=== PATIENT | female | born 1965 | race Caucasian/White ===

== ENCOUNTER 2017-01-21 05:02 | Emergency (ER) | payer MEDICAID ==
[~2017-01-21] VITALS: Ht 167.6 cm; Wt 108.9 kg
[2017-01-21 05:34] LABS: Urine RBC None Seen /hpf (0 - 4)
[2017-01-21 05:46] LABS: Urine Bilirubin Negative (Negative); Urine Blood Negative /uL (Negative); Urine Ca Oxalate Crystal FEW (None Seen); Urine Color Yellow (Yellow); Urine Glucose Normal (Normal); Urine Ketone Negative (Negative); Urine Mucus FEW (None Seen); Urine Nitrite Negative (Negative); Urine Squamous Epithelial Cell MOD /hpf (<5); Urine Urobilinogen Normal (Negative)
[2017-01-21 07:01] LABS: Basophils # (auto) 0 uL; Basophils % (auto) 0.3 % (0.0-2.0); CONDITION Y; Eosinophils # (auto) 0.2 uL; Eosinophils % (auto) 2.9 % (0.0-7.0); Hematocrit 43.2 % (36.0-46.0); Hemoglobin 14.5 g/dL (12.2-16.2); Lymphocytes # (auto) 1.7 uL; Lymphocytes % (auto) 24.9 % (10.0-50.0); Mean Corpuscular Hemoglobin 29.7 pg (28.0-32.0); Mean Corpuscular Hgb Conc. 33.5 g/dL (32.0-36.0); Mean Corpuscular Volume 88.6 fL (80.0-100.0); Mean Platelet Volume 8.6 fL (7.4-10.4); Monocytes # (auto) 0.6 uL; Monocytes % (auto) 8.9 % (0.0-12.0); Neutrophils # (auto) 4.2 uL; Platelet Count (auto) 262 10^3/uL (140-450); Red Cell Distribution Width 14.3 % (11.6-16.0); White Blood Cell 6.6 10^3/uL (4.4-10.8)
[2017-01-21 07:17] LABS: Albumin 3.4 g/dL (3.4-5.0); BUN/Creatinine Ratio 13.5; Bilirubin, Total 0.4 mg/dL (0.2-1.0); Calcium 8.4 mg/dL (8.5-10.1); Potassium 3.5 mmol/L (3.5-5.1); Total Protein 7.1 g/dL (6.4-8.2)
[2017-01-21] MEDS: SODIUM CHLORIDE 0.9% 1,000 ML IV ONE (08:26)
[2017-01-21] MEDS: methylPREDNISolone SOD SUCC 125 MG/2 ML VL IV ONE (08:27)
[2017-01-21] MEDS: cefTRIAXone 1GM/50ML D5W 50 ML IV ONE (08:27)
[2017-01-21] MEDS: diphenhdrAMINE HCL 50 MG/1 ML VL IV ONE (08:27)
[2017-01-21 10:28] VITALS: BP 143/86
[2017-01-21] MEDS: MORPHINE SULFATE 4 MG/ML SYRG IV ONE (10:49)
[2017-01-21] MEDS: ONDANSETRON HCL 4 MG/2 ML VIAL IV ONE (10:50)
== END 2017-01-21 11:05 | disposition home or self-care (01) ==
LOC: ER 05:02
DX: L03.211 Cellulitis of face (principal); T78.40XA Allergy, unspecified, initial encounter; E07.89 Other specified disorders of thyroid; Z90.710 Acquired absence of both cervix and uterus; Z90.49 Acquired absence of other specified parts of digestive tract
CPT/HCPCS: 36415; 80053; 81001; 85025; 94761; 96365; 96366; 96375; 99285; J0696; J1200; J2270; J2405; J2930; J7030